=== PATIENT | female | born 1990 | race Caucasian/White ===

== ENCOUNTER 2021-10-07 01:37 | Inpatient (IN) ==
[2021-10-07] MEDS ORDERED: Buffered Lidocaine 1% SYRIN 1 ml INTRADERM ONE (02:22)
[2021-10-07] MEDS ORDERED: Lactated Ringers 1000 ml BAG 1,000 ML IV ONE ×2 (02:22→08:01)
[2021-10-07 02:46] LABS: Urine Appearance Clear; Urine Bilirubin Negative (Negative); Urine Blood Negative (Negative); Urine Color Straw; Urine Glucose Negative (Negative); Urine Ketones Negative (Negative); Urine Nitrite Negative (Negative); Urine Protein Negative (Negative); Urine Specific Gravity 1.005 (1.002-1.030); Urine Urobilinogen Negative (Negative)
[2021-10-07 03:11] LABS: Urine Benzodiazepine Screen None Detected (None Detect); Urine Cannabinoids Screen None Detected (None Detect); Urine Opiates Screen None Detected (None Detect)
[2021-10-07] MEDS ORDERED: Lidocaine/Epinephrin 1.5%/200 5 ML AMP INJ ONE (05:23)
[2021-10-07] MEDS ORDERED: OBEPIDURAL (200 ML) 200 ML EPIDURAL ONE (05:23)
[2021-10-07 05:24] LABS: ABS Basophils 0.1 10^3/ul (0-0.2); ABS Eosinophils 0.1 10^3/ul (0-0.6); ABS Monocytes 0.8 10^3/ul (0-0.8); ABS Neutrophils 8.3 10^3/ul (1.5-7.7); Eosinophil % 0.6 %; Hematocrit 38 % (35-47); Hemoglobin 12.8 g/dL (12.0-16.0); Lymphocyte % 17.9 %; Mean Corpuscular HGB Conc 34 g/dL (31-36); Mean Corpuscular Hemoglobin 30 pg (27-31); Mean Corpuscular Volume 89 fL (80-97); Mean Platelet Volume 7.9 fL (7.4-10.4); Nucleated Red Blood Cells % 0.1; Platelet Count 349 10^3/uL (150-450); Red Blood Count 4.26 10^6 /uL (3.70-4.87); Red Cell Distribution Width 14 % (10-15); White Blood Count 11.2 10^3/uL (3.5-10.8)
[2021-10-07] MEDS ORDERED: fentaNYL 100 mcg/2 ml 50 MCG/ML VIAL ONE (05:53)
[2021-10-07] MEDS ORDERED: Phenylephrine 40 mcg/mL 10mL (400mcg) SYRINGE IV PUSH PRN ×2 (08:01)
[2021-10-07] MEDS ORDERED: Sodium Citrate/Citric Acid LIQ 15 ML UDC PO PRN (08:01)
[2021-10-07] MEDS ORDERED: Lactated Ringers 1000 ml BAG 1,000 ML IV SCH ×2 (09:00→13:00)
[2021-10-07] MEDS ORDERED: Oxytocin in LR 20 UNITS/1,000 ML BAG IVPB ONE (10:13)
[2021-10-07] MEDS ORDERED: Oxytocin in LR 20 UNITS/1,000 ML BAG IVPB SCH (11:56)
[2021-10-07] MEDS ORDERED: Lidocaine 1% MPF 5 ML VIAL ONE (12:32)
[2021-10-07] MEDS: Dibucaine 1% OINT 28.35 GM TUBE PR PRN (14:38)
[2021-10-07] MEDS: Witch Hazel PAD JAR TOPICAL PRN (14:38)
[2021-10-08] MEDS: OBEPIDURAL (200 ML) 200 ML EPIDURAL SCH ×2 (08:31→09:05)
[2021-10-08] MEDS: Dibucaine 1% OINT 28.35 GM TUBE PR PRN (09:04)
[2021-10-08] MEDS: Witch Hazel PAD JAR TOPICAL PRN (09:06)
[2021-10-08 13:41] LABS: ABS Eosinophils 0.1 10^3/ul (0-0.6); ABS Lymphocytes 1.5 10^3/ul (1.0-4.8); ABS Monocytes 0.6 10^3/ul (0-0.8); ABS Neutrophils 6.9 10^3/ul (1.5-7.7); Eosinophil % 0.8 %; Hematocrit 35 % (35-47); Hemoglobin 11.4 g/dL (12.0-16.0); Lymphocyte % 16.3 %; Mean Corpuscular HGB Conc 33 g/dL (31-36); Mean Corpuscular Hemoglobin 30 pg (27-31); Mean Corpuscular Volume 92 fL (80-97); Mean Platelet Volume 7.8 fL (7.4-10.4); Platelet Count 301 10^3/uL (150-450); Red Blood Count 3.77 10^6 /uL (3.70-4.87); Red Cell Distribution Width 14 % (10-15); White Blood Count 9.1 10^3/uL (3.5-10.8)
[2021-10-09 07:45] VITALS: BP 120/82
== END 2021-10-09 12:44 | disposition home or self-care (01) | DRG 560 ==
LOC: MCHOBOUT 01:37 → MCHOB 02:18
PROVIDERS: ADMIT Advanced Practice Midwife; ATTEND Advanced Practice Midwife